=== PATIENT | male | born 1975 | race Caucasian/White ===

== ENCOUNTER 2019-12-05 02:43 | Outpatient (CLI) | payer OTHER, SELFPAY ==
[2019-12-05 18:16] LABS: SARS-CoV-2 RNA PCR Negative
== END 2019-12-05 02:44 | disposition home or self-care (01) ==
LOC: ANHCOVIDDT 02:44
PROVIDERS: Visit Provider Plastic Surgery
DX: Z01.812 Encounter for preprocedural laboratory examination (principal); Z20.828 Contact with and (suspected) exposure to other viral communicable diseases
CPT/HCPCS: 87635; C9803; U0003

== ENCOUNTER 2019-12-07 01:49 | Day surgery (SDC) | payer OTHER, SELFPAY ==
[2019-12-02 10:13] VITALS: BMI 33.5
--- NOTE | 2019-12-07 07:16 | WPDHPUPDATE1 ---
History and Physical Update Update Date/Time: 12/07/19 07:16 History and Physical has been reviewed, including an updated exam of the patient. There are NO changes in the patient's condition. Risks, benefits, and alternatives have been discussed and questions answered. Patient agrees to proceed with procedure.
--- NOTE | 2019-12-07 07:48 | WPDANESEPPF ---
Anes - Initial Pre Proc Eval Procedure: Operation Date: 12/07/19 09:00 Proposed Procedures p Delayed Repair Left Extensor Pollicis Longus Zone Two, Possible Tendon Transfer Of Extensor Indicis Proprius - Luke Dave MD Date/Time: 12/07/19 07:48 Surgeon: Luke Dave MD Pre Op Diagnosis: Laceration Of Extensor Pollicis Longus Left Thumb Patient Data Age: 44 Gender: M Height: 5 ft 11 in Weight: 108.86 kg Allergies Allergy/AdvReac Type Severity Reaction Status Date / Time No Known Allergies Allergy Verified 12/02/19 10:13 Home Medications Medication Instructions Recorded Confirmed Type No Home Medications 12/02/19 12/02/19 History Patient hx anesthesia problems: none Family hx anesthesia problems: none [facility] Past Medical History Medical History (Updated 12/07/19 @ 07:49 by Nicholas Gomes MD) Obesity Social History Social History Smoking status: Never smoker Alcohol intake: current Drinks per week: 12 Substance use: former Substance use type: marijuana Last use: REPORTS NONE IN A LONG TIME Spiritual care concerns: No Anes - Eval Final PreProcedure Day of Procedure 12/07/19 07:48 Patient weight: obese Heart: regular rate and rhythm Lungs: clear to auscultation Airway: Mallampati scale class II Neurological: alert and oriented Last oral intake: >/= 8 hours ASA classification: II Emergent: no Anesthetic plan: proceed Anesthesia type and monitoring: general LMA and standard monitoring Informed Consent: The patient's anesthetic plan and its attendant risks and benefits were discussed with the patient/family/POA. Questions were solicited and answers provided to the satisfaction of the patient/family/POA.
[2019-12-07 07:49] VITALS: BP 117/81; PULSE 74; TEMP 37.1; O2SAT 99
[2019-12-07] MEDS: LACTATED RINGERS 1,000 ML 30 ML IV CONT ×2 (07:55→11:14)
--- NOTE | 2019-12-07 09:40 | WPDHPUPDATE1 ---
History and Physical Update Update Date/Time: 12/07/19 09:40 History and Physical has been reviewed, including an updated exam of the patient. There are NO changes in the patient's condition. Risks, benefits, and alternatives have been discussed and questions answered. Patient agrees to proceed with procedure.
--- NOTE | 2019-12-07 09:42 | WPDHPUPDATE1 ---
History and Physical Update Update Date/Time: 12/07/19 09:42 History and Physical has been reviewed, including an updated exam of the patient. There are NO changes in the patient's condition. Risks, benefits, and alternatives have been discussed and questions answered. Patient agrees to proceed with procedure.The H&P plan should read: The thumb to be operated is the right.
--- NOTE | 2019-12-07 09:57 | P.OPB_ITS ---
Procedure Note - Brief Procedure Note - Brief Date of procedure: 12/07/19 Pre-op diagnosis: Laceration Of Extensor Pollicis Longus Left Thumb Post-op diagnosis: same Anesthesia: GLMA Surgeon: Luke Dave MD Oncology Admin: Daquan Estimated blood loss (mL): 2 Tourniquet time (min): 45 Drains: No Packing: No Pathology: none sent Complications: No immediate complications Condition: stable Disposition: same day Findings: Tendon gap 1.0 cm
[2019-12-07] MEDS: LIDO 1%/EPINEPHRINE 1:100,000 20 ML VIAL INFILTRATE (10:24)
[2019-12-07 11:14] VITALS: BP 128/67; PULSE 81; RESP 18
--- NOTE | 2019-12-07 11:34 | PM.PROC ---
Procedure Note - Detailed Date of procedure: 12/07/19 Pre-op diagnosis: Laceration Of Extensor Pollicis Longus Left Thumb Post-op diagnosis: same Procedure performed: Delayed repair of extensor pollicis longus left thumb. Description of procedure: The thumb was identified and marked in the holding area. He was taken to the operating room and placed supine on the operating table. The time-out was held and confirmed. The patient was administered general anesthesia with an LMA. The left upper extremity was prepped and draped in the usual fashion. The site was marked for incision to access the healed wound and create skin flaps. This area was infiltrated with 1% lidocaine with epinephrine. The tourniquet was inflated to 250 mmHg. The incision was made as marked. Skin flaps were elevated and the site anatomy clearly identified. There was a 1 cm gap between the 2 ends of the extensor pollicis longus. Both ends lay within the wound. The existing scar prevented mobilization of the tendon in that region. Scar was excised freshening the tendon ends. Tenolysis of both ends was undertaken with scissors. Mobilization of the ends allowed coaptation with the IP joint in full extension. The repair was accomplished with 3-0 Ethibond modified Sheikh suture and 2 [id number] Ethibond sutures on the dorsal aspect. The skin wound was closed with a running 5 0 nylon suture. A soft dressing was applied and the thumb was splinted with Alumafoam splint on the palmar thumb and Ortho Glass on the hand and forearm. He is discharged with instructions in wound care and follow-up the as a prescription called in for hydrocodone [id number]. Anesthesia: GLMA Surgeon: Luke Dave MD [employer] Consultant: Daquan Hansen Estimated blood loss (mL): 2 Tourniquet time (min): 45 Drains: No Packing: No Pathology: none sent Complications: No immediate complications Condition: stable Disposition: same day
[2019-12-07 11:40] VITALS: BP 129/89; PULSE 80; RESP 18
[2019-12-07 12:10] VITALS: BP 129/79; PULSE 73; RESP 18
[2019-12-07 12:28] VITALS: BP 91/73; PULSE 74; RESP 18
== END 2019-12-07 12:52 | disposition home or self-care (01) ==
PROVIDERS: Visit Provider Plastic Surgery
PROC: (CPT 26418; principal; 2019-12-07 09:00)
DX: S66.222A Laceration of extensor muscle, fascia and tendon of left thumb at wrist and hand level, initial encounter (principal); W26.8XXA Contact with other sharp object(s), not elsewhere classified, initial encounter; E66.9 Obesity, unspecified; Z68.34 Body mass index [BMI] 34.0-34.9, adult
CPT/HCPCS: 26418; A9270; J1100; J1170; J2250; J2405; J2704; J3010; J7120